=== PATIENT | female | born 1945 | race Caucasian/White ===

== ENCOUNTER 2025-02-26 12:40 | Emergency (ER) | payer MEDICARE, OTHER ==
[~2025-02-26] VITALS: Ht 152.4 cm; Wt 88.5 kg
[~2025-02-26 12:40] MED LIST: PARO10TA86 PO; VALS1TAB4 PO
[2025-02-26 13:09] LABS: BASOPHILS % (AUTO) 0.4 % (0.0-2.0); EOSINOPHILS # (AUTO) 0.2 K/uL (0.0-0.7); EOSINOPHILS % (AUTO) 1.4 % (0.0-6.0); HEMATOCRIT 39 % (33-45); HEMOGLOBIN 12.8 g/dL (11.5-14.8); LYMPHOCYTES # (AUTO) 3.4 K/uL (0.8-4.8); LYMPHOCYTES % (AUTO) 30.1 % (20.0-44.0); MEAN CORPUSCULAR HEMOGLOBIN 29 PG (26.0-33.0); MEAN CORPUSCULAR HGB CONC 33 g/dl (31.0-36.0); MEAN CORPUSCULAR VOLUME 88 fL (82-100); MONOCYTES # (AUTO) 0.8 K/uL (0.1-1.30); MONOCYTES % (AUTO) 7.2 % (2.0-12.0); NEUTROPHILS # (AUTO) 6.8 K/uL (1.8-8.9); NEUTROPHILS % (AUTO) 60.9 % (43.0-81.0); PLATELET COUNT (AUTO) 283 K/uL (150-450); RED BLOOD CELL COUNT(AUTO) 4.44 MIL/uL (4.0-5.2); RED CELL DISTRIBUTION WIDTH 15.3 % (11.5-15.0); WHITE BLOOD COUNT (AUTO) 11.2 K/uL (4.3-11.0)
[2025-02-26 13:14] LABS: CALCIUM, SERUM 9.8 mg/dL (8.5-10.1); CREATININE 0.6 mg/dL (0.6-1.3)
[2025-02-26 13:20] LABS: ALBUMIN 3.5 g/dL (3.4-5.0); BILIRUBIN,DIRECT 0.3 mg/dL (0.0-0.2); TOTAL PROTEIN, SERUM 8.5 g/dL (6.4-8.2)
[2025-02-26 13:50] LABS: APPEARANCE,URINE CLEAR (CLEAR); BILIRUBIN,URINE 1+ (NEGATIVE); BLOOD, URINE NEGATIVE Ery/uL (NEGATIVE); COLOR,URINE YELLOW (YELLOW); KETONES,URINE NEGATIVE (NEGATIVE); LEUKOCYTE ESTERASE ,URINE 1+ (NEGATIVE); NITRITE, URINE NEGATIVE (NEGATIVE); PROTEIN,URINE TRACE mg/dl (NEGATIVE); UGLUCOSE NEGATIVE (NEGATIVE)
[2025-02-26 14:15] LABS: ADD URINE CULTURE YES; BACTERIA,URINE Many /HPF (None Seen); RBC,URINE 0-2 /HPF (0-2); SQUAMOUS EPITHELIAL CELL,UR Many /HPF (None Seen)
[2025-02-26] MEDS ORDERED: METR500T PO (14:45)
[2025-02-26] MEDS ORDERED: CIPR-262 PO (14:45)
[2025-02-26 15:12] VITALS: TEMP 98.4
[2025-02-26 15:15] VITALS: BP 138/92; O2SAT 98
== END 2025-02-26 15:16 | disposition home or self-care (01) ==
LOC: ER 12:48
DX: R10.11 Right upper quadrant pain (principal); K29.80 Duodenitis without bleeding; N39.0 Urinary tract infection, site not specified; F32.A Depression, unspecified; I10 Essential (primary) hypertension; Z79.899 Other long term (current) drug therapy
CPT/HCPCS: 36415; 76700-TC; 80048-TC; 80076-TC; 81001; 83690-TC; 85025-TC; 87086-TC

== ENCOUNTER 2025-03-28 09:38 | Inpatient (IN) | payer MEDICARE, OTHER ==
[~2025-03-28] VITALS: Ht 154.9 cm; Wt 93.0 kg
[~2025-03-28 09:38] MED LIST changes: +CIPR-262 PO; +METR500T PO
[2025-03-28] MEDS ORDERED: ONDANSETRON HCL/PF 4 MG/2 ML VIAL ONE (09:44)
[2025-03-28] MEDS ORDERED: FAMOTIDINE/PF INJ 20 MG/2 ML VIAL IV ONE (09:44)
[2025-03-28] MEDS: IV NS 0.9% 1,000 ML BAG IV ONE (10:08)
[2025-03-28] MEDS: FAMOTIDINE/PF INJ 20 MG/2 ML VIAL IV ONE (10:09)
[2025-03-28] MEDS: ONDANSETRON HCL/PF 4 MG/2 ML VIAL IVP ONE (10:09)
[2025-03-28 10:10] LABS: PLATELET COUNT (AUTO) 282 K/uL (150-450); RED BLOOD CELL COUNT(AUTO) 4.32 MIL/uL (4.0-5.2); RED CELL DISTRIBUTION WIDTH 14.9 % (11.5-15.0); WHITE BLOOD COUNT (AUTO) 11.6 K/uL (4.3-11.0)
[2025-03-28] MEDS ORDERED: ACETAMINOPHEN ES 500 MG TABLET ONE (10:13)
[2025-03-28] MEDS ORDERED: LORAZEPAM INJ 2 MG/ML VIAL ONE (10:13)
[2025-03-28] MEDS: ACETAMINOPHEN ES 500 MG TABLET PO ONE (10:21)
[2025-03-28] MEDS: LORAZEPAM INJ 2 MG/ML VIAL IV ONE (10:21)
[2025-03-28 10:25] LABS: SODIUM SERUM 142 mmol/L (136-145)
[2025-03-28 10:26] LABS: CREATININE 0.7 mg/dL (0.6-1.3); UREA NITROGEN, BLOOD 21 mg/dL (7-18)
[2025-03-28 10:27] LABS: ASPARTATE AMINOTRANSFERASE 17 U/L (15-37); CALCIUM, SERUM 10.2 mg/dL (8.5-10.1); TOTAL PROTEIN, SERUM 8.2 g/dL (6.4-8.2)
[2025-03-28] MEDS ORDERED: LEVO-146 PO (11:05)
[2025-03-28] MEDS ORDERED: LOSA100T31 PO (11:05)
[2025-03-28] MEDS ORDERED: ASPI-1169 PO (11:05)
[2025-03-28] MEDS ORDERED: HYDR25TA4 PO (11:05)
[2025-03-28] MEDS ORDERED: ASPIRIN EC 325 MG TABLET.DR PO ONE (11:14)
[2025-03-28] MEDS: ASPIRIN 325 MG TABLET PO ONE (11:16)
[2025-03-28] MEDS ORDERED: MORPHINE SULFATE INJ 2 MG/ML DISP.SYRIN IV PRN (13:30)
[2025-03-28] MEDS ORDERED: ONDANSETRON HCL/PF 4 MG/2 ML VIAL IVP PRN (13:30)
[2025-03-28 16:00] VITALS: BP 169/71; TEMP 97.9; O2SAT 99
[2025-03-28] MEDS: hydrALAZINE HCL IV 20 MG VIAL IV PRN (17:14)
[2025-03-28 20:00] VITALS: BP 138/58; TEMP 98.1; O2SAT 99
[2025-03-28] MEDS: ENOXAPARIN SODIUM 100 MG/ML DISP.SYRIN SQ SCH (20:27)
[2025-03-28] MEDS ORDERED: HEPARIN SODIUM, PORCINE 5000 UNITS/1 ML VIAL SQ SCH (21:00)
[2025-03-29] VITALS: BP 128/77; TEMP 98.1; O2SAT 96
[2025-03-29] MEDS: ACETAMINOPHEN 325 MG TABLET PO PRN (00:54)
[2025-03-29 04:00] VITALS: BP 132/77; TEMP 98; O2SAT 100
[2025-03-29 05:00] VITALS: BP 132/77; TEMP 98; O2SAT 100
[2025-03-29 07:20] LABS: PLATELET COUNT (AUTO) 253 K/uL (150-450); RED BLOOD CELL COUNT(AUTO) 4.29 MIL/uL (4.0-5.2); RED CELL DISTRIBUTION WIDTH 15.3 % (11.5-15.0); WHITE BLOOD COUNT (AUTO) 10.1 K/uL (4.3-11.0)
[2025-03-29] MEDS: LEVOTHYROXINE SODIUM 50 MCG TABLET PO SCH (08:16)
[2025-03-29] MEDS: ASPIRIN 81 MG TAB.CHEW PO SCH (08:17)
[2025-03-29 08:18] VITALS: BP 122/72
[2025-03-29] MEDS: LOSARTAN POTASSIUM 50 MG TABLET PO SCH (08:18)
[2025-03-29] MEDS: HYDROCHLOROTHIAZIDE 25 MG TABLET PO SCH (08:18)
[2025-03-29 08:23] LABS: APPEARANCE,URINE CLEAR (CLEAR); BLOOD, URINE NEGATIVE Ery/uL (NEGATIVE); LEUKOCYTE ESTERASE ,URINE NEGATIVE (NEGATIVE); NITRITE, URINE NEGATIVE (NEGATIVE); UGLUCOSE NEGATIVE (NEGATIVE)
[2025-03-29 08:26] LABS: ASPARTATE AMINOTRANSFERASE 21.0 U/L (15-37); CALCIUM, SERUM 9.5 mg/dL (8.5-10.1); CREATININE 0.5 mg/dL (0.6-1.3); PHOSPHORUS 2.3 mg/dL (2.5-4.9); SODIUM SERUM 140.0 mmol/L (136-145); TOTAL PROTEIN, SERUM 7.9 g/dL (6.4-8.2); UREA NITROGEN, BLOOD 12.0 mg/dL (7-18)
[2025-03-29 12:43] LABS: LACTIC ACID 0.8 mmol/L (0.4-2.0)
[2025-03-29] MEDS: K PHOS NEUTRAL 250 MG TABLET PO ONE (15:47)
== END 2025-03-29 17:01 | disposition short-term general hospital (02) | DRG 282 ==
LOC: ER 09:40 → TELE 12:00
PROVIDERS: ADMIT Internal Medicine; ATTEND Internal Medicine
DX: I21.4 Non-ST elevation (NSTEMI) myocardial infarction (principal); E66.01 Morbid (severe) obesity due to excess calories; Z68.38 Body mass index [BMI] 38.0-38.9, adult; I10 Essential (primary) hypertension; F32.A Depression, unspecified; Z79.82 Long term (current) use of aspirin; Z79.890 Hormone replacement therapy; Z79.899 Other long term (current) drug therapy; E78.5 Hyperlipidemia, unspecified; I44.7 Left bundle-branch block, unspecified; Z87.19 Personal history of other diseases of the digestive system
CPT/HCPCS: 36415; 70450-TC; 71045-TC; 80048-TC; 80053-TC; 80076-TC; 82962-TC; 83605-TC; 83690-TC; 83735-TC; 84100-TC; 84439-TC; 84443-TC; 84484-TC; 85025-TC; 87086-TC; 93307-TC; A4223; G0378; J0360; J1308; J1650; J2060; J2405